=== PATIENT | male | born 1980 | race American Indian/Alaskan Native ===

== ENCOUNTER 2021-09-13 17:45 | Emergency (ER) | payer SELFPAY ==
[2021-09-13 17:53] VITALS: BP 167/125
== END 2021-09-14 00:30 ==
LOC: ED 17:45
DX: S30.812A Abrasion of penis, initial encounter (principal); Z53.21 Procedure and treatment not carried out due to patient leaving prior to being seen by health care provider; X58.XXXA Exposure to other specified factors, initial encounter; Y93.89 Activity, other specified; Y92.89 Other specified places as the place of occurrence of the external cause; Y99.8 Other external cause status